=== PATIENT | female | born 1955 | race Caucasian/White ===

== ENCOUNTER → 2018-10-18 | Outpatient (CLI) | payer SELFPAY ==
[~2018-10-18] MED LIST: GLIP10 PO; METF500 PO; Percocet 5-3251 EACH PO
== END | disposition home or self-care (01) ==
LOC: LAB SHORT 12:11 → LAB 12:11
PROVIDERS: Nurse Practitioner Family
DX: Z00.00 Encounter for general adult medical examination without abnormal findings (principal)
CPT/HCPCS: G0123

== ENCOUNTER → 2021-08-09 | Outpatient (CLI) | payer OTHER | END | disposition home or self-care (01) | LOC: LAB 08:00 → LAB SHORT 11:38 | DX: J02.9 Acute pharyngitis, unspecified (principal) | CPT/HCPCS: 87081 ==

== ENCOUNTER → 2024-09-13 | Outpatient (CLI) | payer OTHER ==
[2024-09-13 16:51] LABS: Creatinine, Urine Random 59.7 mg/dL (27.00-270.00)
[2024-09-13 16:56] LABS: Microalb/Creat Ratio UR, Rand 36.683 mg/g (0.000-30.000); Microalbumin, Random Urine 21.9 mg/L (0.000-20.000)
== END ==
LOC: LAB SHORT 09:55 → LAB 09:55
PROVIDERS: Family Medicine
DX: E11.3292 Type 2 diabetes mellitus with mild nonproliferative diabetic retinopathy without macular edema, left eye (principal); E11.42 Type 2 diabetes mellitus with diabetic polyneuropathy; E11.69 Type 2 diabetes mellitus with other specified complication; E11.51 Type 2 diabetes mellitus with diabetic peripheral angiopathy without gangrene; E11.65 Type 2 diabetes mellitus with hyperglycemia
CPT/HCPCS: 82043; 82570

== ENCOUNTER 2025-03-29 06:13 | Day surgery (SDC) | payer OTHER ==
[~2025-03-29] VITALS: Ht 167.6 cm; Wt 74.6 kg
[~2025-03-29 06:13] MED LIST changes: +Balanced Salt Epinephrine Irrigation Solution 500 mL IR SCH; +JARDIANCE10 MG PO; +Moxifloxacin HCL 0.5 MG/0.1 ML 0.4MLSYR RIGHTEYE SCH; +Ondansetron 4 MG SoluTab MM PRN; +PHENYLEPHRINE\\TROPICAMIDE\\TETRACAINE OPHTHALMIC DILATING SOLN RIGHTEYE PRN; +Povidone-Iodine 450 DROP/30 ML Solution ONE; +Povidone-Iodine 450 DROP/30 ML Solution RIGHTEYE SCH; +Tetracaine HCl/Pf 0.5% Opth Soln 4 ml ONE; +Triamcinolone Inj Susp 40 MG / ML 1ML Vial INJ SCH
--- NOTE | 2025-03-29 06:29 | NUR ---
03/29/25 0629 Carlie Curran PT REPORTS ANXIETY LEVEL 2/10 PRIOR TO ADMINISTRATION OF VALIUM 10MG PO @ 0628.
[2025-03-29] MEDS ORDERED: Triamcinolone Inj Susp 40 MG / ML 1ML Vial ONE (06:52)
--- NOTE | 2025-03-29 07:37 | NUR ---
03/29/25 0737 Lali Robins VITALS AT 0736 BP: 130/88 P: 57 O2: 100% WITH 9 LITERS OF BLOW BY OXYGEN
[2025-03-29 07:58] VITALS: BP 119/71
--- NOTE | 2025-03-29 07:58 | NUR ---
03/29/25 0758 Alisia Coughlin 0754: DR GARCIA AT BEDSIDE. INSTRUCTED TO PULL CAR AROUND
== END 2025-03-29 09:12 | disposition home or self-care (01) ==
LOC: ORSCSDS 06:13
PROVIDERS: Ophthalmology
PROC: 08RJ3JZ Replacement of Right Lens with Synthetic Substitute, Percutaneous Approach (ICD-10-PCS; principal; 2025-03-29 07:30)
DX: E11.36 Type 2 diabetes mellitus with diabetic cataract (principal); H25.811 Combined forms of age-related cataract, right eye; Z96.1 Presence of intraocular lens; E78.5 Hyperlipidemia, unspecified; Z79.84 Long term (current) use of oral hypoglycemic drugs; Z79.85 Long-term (current) use of injectable non-insulin antidiabetic drugs; Z79.899 Other long term (current) drug therapy
CPT/HCPCS: A9270; J2003; J3301; V2632